=== PATIENT | female | born 1940 | race Caucasian/White ===

== ENCOUNTER 2017-09-26 07:35 | Day surgery (SDC) | payer MEDICARE, BC ==
[2017-09-26] MEDS ORDERED: Sodium Chloride 0.9% 1,000 ML IV SCH (08:15)
[2017-09-26] MEDS ORDERED: Propofol 200 MG/20 ML SDV ONE (09:06)
[2017-09-26] MEDS ORDERED: fentaNYL 100 MCG/2 ML SDV ONE ×2 (09:08→09:10)
[2017-09-26 11:27] VITALS: BP 154/68
--- NOTE | 2017-09-26 13:35 | OR ---
DATE OF PROCEDURE: 09/26/2017 PROCEDURE: EGD. FINDINGS: 1. Gastric ulcer in the antrum, no active bleeding. 2. Narrowing of GE junction consistent with probable reflux disease (biopsied using cold biopsy forceps and dilated to stage I with 36-[place] balloon). COMPLICATIONS: None. MARKETING ACCOUNT EXECUTIVE: None. PREOPERATIVE DIAGNOSIS: Dysphagia. POSTOPERATIVE DIAGNOSIS: Dysphagia. RISKS: Risks, benefits, alternatives, and limitations including, but not limited to infection, bleeding, and perforation were explained to the patient, and they wished to proceed. PROCEDURE IN DETAIL: The patient was placed in left lateral decubitus position. The EGD scope was introduced and advanced atraumatically to the second part of the duodenum. The scope was brought back and retroflexed. No hiatal hernia. In the gastric antrum, there was an area of ulceration consistent with healing ulcer. A biopsy was performed in proximity to this for H. pylori evaluation. No other abnormalities were noted in the stomach. The GE junction was narrowed, most likely, due to significant reflux disease. This was biopsied only x1 due to the risk of perforation, as the patient will be subsequently dilated. 36-[place] balloon was used and dilated to stage I. No abnormalities were noted after the dilation. The remainder of the esophagus was normal. The patient tolerated the procedure well. Felton Dickey MD /[id number]
== END 2017-09-26 11:46 | disposition home or self-care (01) ==
LOC: JP.SDS 07:35
PROVIDERS: ATTEND Surgery
DX: K22.2 Esophageal obstruction (principal); K29.50 Unspecified chronic gastritis without bleeding; K20.0 Eosinophilic esophagitis; I10 Essential (primary) hypertension; E78.5 Hyperlipidemia, unspecified; Z88.8 Allergy status to other drugs, medicaments and biological substances
CPT/HCPCS: 43239; 43249; J2704; J3010; J7030; 88305; 88312; 88342

== ENCOUNTER 2018-06-25 12:28 | Outpatient (CLI) | payer MEDICARE ==
[~2018-06-25 12:28] MED LIST: Bupivacaine 0.25% 10 ML SDV ONE; methylPREDNISolone Acetate 40 MG/ML SDV ONE
[2018-06-25 13:30] VITALS: BP 162/71; PULSE 81
--- NOTE | 2018-06-25 14:40 | ANES ---
DATE OF SERVICE: 06/25/2018 INDICATIONS: Shawanda is a 78-year-old female patient referred to us by Rena Wood for an epidural steroid injection. Shawanda has had them several times in the past, is well aware of risks and benefits and wishes to proceed with EMMANUEL today. Please refer to the doctor's notes for ICD-10 code and diagnosis. TECHNIQUE: The patient was then sat at the edge of the bed. Betadine prep x3 to the lumbar region was done. Sterile drape was placed. 1% lidocaine skin wheal and deep was done. A 17-gauge Tuohy needle was inserted at approximately the L4-L5 position. Loss of resistance was achieved. Negative paresthesia, negative heme, negative CSF were noted. I then proceeded to give 7 mL of normal saline with 2 mL of 0.25% Sensorcaine and 1 mL of 40 mg Depo-Medrol. Tuohy needle was then flushed and withdrawn. Sterile drape was taken down. Betadine was cleaned off her back, and a Band-Aid was applied to the puncture site for hemostasis. The patient tolerated the procedure without difficulty. Please refer to the nurse's note for vital signs. Shawanda only has 40 mg yet this year until October. She is aware that she can only have one more EMMANUEL of 40 mg from now until October. She still wants to come in 1 month to have her last one done. I guess that she is aware that she only has one more EMMANUEL to go. After the appropriate amount of time, the patient will be discharged per [facility] protocol. Herber Angelo CRNA /[id number]
== END 2018-06-25 13:45 | disposition home or self-care (01) ==
LOC: JP.PAIN 12:28
PROVIDERS: ATTEND Physician Assistant
DX: M54.31 Sciatica, right side (principal)
CPT/HCPCS: 62322; J1030; J3490

== ENCOUNTER 2018-12-10 10:43 | Day surgery (SDC) | payer MEDICARE ==
[2018-12-10] MEDS ORDERED: Propofol 200 MG/20 ML SDV ONE (11:39)
[2018-12-10] MEDS ORDERED: fentaNYL 100 MCG/2 ML SDV ONE (11:40)
[2018-12-10] MEDS ORDERED: Midazolam 1 MG/ML 2 ML SDV ONE (11:40)
[2018-12-10] MEDS ORDERED: Lactated Ringers 1,000 ML IV SCH (11:45)
[2018-12-10 15:15] VITALS: BP 161/71; PULSE 79
--- NOTE | 2018-12-10 15:20 | OR ---
DATE OF PROCEDURE: 12/10/2018 SURGEON: Roderick Tobias MD PREOPERATIVE DIAGNOSIS: History of polyps. POSTOPERATIVE DIAGNOSES: Unremarkable colonoscopy and history of polyps. PROCEDURE: Colonoscopy to the cecum. ANESTHESIA: IV anesthesia with monitored anesthesia care. INDICATION: This 78-year-old white female is referred for a colonoscopy. She believes she has a history of colon polyps. She is not sure when she had her last colonoscopic exam. I counseled her for the procedure including risks and alternatives, and she gave her informed consent to proceed. DESCRIPTION OF PROCEDURE: The patient was placed in the left lateral decubitus position. IV anesthesia was administered by the Anesthesia Service. Time-out was held. A rectal exam was performed, which was unremarkable. The flexible video Olympus colonoscope was introduced through her anus, up her rectum, out her colon, all way to the cecum. Once the cecum was reached, the scope was slowly withdrawn examining the mucosa throughout. No mucosal abnormalities were noted. The scope was retroflexed in the rectum with the distal rectum appearing unremarkable. The scope was straightened and removed. She tolerated the procedure well. Roderick Tobias MD /[id number]
== END 2018-12-10 15:17 | disposition home or self-care (01) ==
LOC: JP.SDS 10:43
PROVIDERS: ATTEND Surgery
DX: Z12.11 Encounter for screening for malignant neoplasm of colon (principal); I10 Essential (primary) hypertension; E78.5 Hyperlipidemia, unspecified; R91.8 Other nonspecific abnormal finding of lung field; Z88.5 Allergy status to narcotic agent; Z86.010 Personal history of colon polyps
CPT/HCPCS: G0121; J2250; J2704; J3010; J7120

== ENCOUNTER 2022-11-27 10:05 | Emergency (ER) | payer MEDICARE ==
[2022-11-27 11:38] VITALS: BP 178/68; PULSE 81
== END 2022-11-27 13:18 | disposition home or self-care (01) ==
LOC: JP.ED 10:05
DX: M51.36 Other intervertebral disc degeneration, lumbar region (principal); I10 Essential (primary) hypertension; Z88.5 Allergy status to narcotic agent; Z79.82 Long term (current) use of aspirin; Z79.02 Long term (current) use of antithrombotics/antiplatelets
CPT/HCPCS: 72100; 72100-26; 99283